=== PATIENT | female | born 2000 | race American Indian/Alaskan Native ===

== ENCOUNTER 2020-01-14 10:49 | Emergency (ER) | payer SELFPAY ==
[2020-01-14 11:33] LABS: HCG Qualitative,Urine Negative (Negative)
[2020-01-14 11:35] LABS: Bacteria,Urine 1+ /HPF (Negative); Bilirubin,Urine NEG (Negative); Blood,Urine LG (Negative); Color,Urine Yellow (Yellow); Mucus,Urine FEW /HPF; Protein,Urine <15 mg/dL mg/dL (Negative); Urobilinogen,Urine < 2.0 mg/dL (<2.0)
== END 2020-01-14 14:15 | disposition left against medical advice (07) ==
LOC: ED 10:49
DX: R30.0 Dysuria (principal); Z53.21 Procedure and treatment not carried out due to patient leaving prior to being seen by health care provider
CPT/HCPCS: 81001; 81025; 87076; 87086; 87186

== ENCOUNTER 2022-06-07 15:28 | Outpatient (CLI) | payer SELFPAY ==
[2022-06-07] MEDS ORDERED: LACTATED RINGERS 500 ML IV ONE (17:00)
--- NOTE | 2022-06-07 19:26 | Ultrasound Report ---
OBSTETRIC ULTRASOUND INDICATION: Maternal gestational hypertension COMPARISON: No prior relevant imaging studies are available for comparison. TECHNIQUE: Transabdominal imaging was performed. FINDINGS: FETUS A: lie: Cephalic. Heart rate: 144 bpm. Biparietal diameter 5.2 cm, 21 weeks 6 days Head circumference 20.2 cm, 22 weeks 2 days Abdominal circumference 17.2 cm, 22 weeks 1 day Femur length 4.0 cm, 23 weeks 0 days weight is 508 g. FETUS B: lie: Cephalic. Heart rate: 145 bpm. Biparietal diameter 5.2 cm, 21 weeks 6 days Head circumference 19.5 cm, 21 weeks 5 days Abdominal circumference 16.7 cm, 21 weeks 5 days Femur length 3.8 cm, 22 weeks 2 days weight is 463 g. Largest pocket of amniotic fluid is 3.7 cm, within normal limits. Cervical length was measured at 2. 2 cm. Placenta is anterior. CONCLUSION: Viable twin intrauterine , measurements as above. Largest vertical pocket of amniotic fluid is 3.7 cm, within normal limits. Cervix measures 2.2 cm. Signer Name: Krishna Santamaria MD Signed: 06/07/2022 7:21 PM Workstation Name: [id number]
[2022-06-07 20:06] VITALS: BP 99/56
== END 2022-06-07 20:07 | disposition home or self-care (01) ==
LOC: TRG 15:28 → APU 15:29 → TRG 20:07
PROVIDERS: ATTEND Obstetrics & Gynecology
DX: O26.892 Other specified pregnancy related conditions, second trimester (principal); R10.9 Unspecified abdominal pain; Z3A.21 21 weeks gestation of pregnancy
CPT/HCPCS: 76816; 76817